=== PATIENT | female | born 1945 | race Caucasian/White ===

== ENCOUNTER 2018-07-09 05:20 | Day surgery (SDC) | payer OTHER ==
[~2018-07-09] VITALS: Ht 165.1 cm; Wt 75.7 kg
--- NOTE | ~2018-07-09 | O ---
[facility] [place] [address] OPERATIVE REPORT Name: PRECIOUS ALFRED Room #: DEP [facility]..#: [id number] Admission: 07/09/18 Attend Phys: Gaston Luna MD Discharge: 07/09/18 Date of : 47 Report #: [id number] THIS REPORT FOR: //name// CC: Jaylon Luna DATE OF SERVICE: 07/09/2018 SURGEON: Gaston Luna M.D. LOCAL ANNOUNCER: None. PREOPERATIVE DIAGNOSIS: Bilateral lower lid ectropion. POSTOPERATIVE DIAGNOSIS: Bilateral lower lid ectropion. OPERATION PERFORMED: Bilateral lower lid ectropion repair. ANESTHESIA: Local with IV sedation. COMPLICATIONS: None. INDICATIONS FOR PROCEDURE: This patient has bilateral acquired lower lid ectropion with chronic tearing and discharge. The current procedures are undertaken in order to improve the patient's visual function, lacrimal outflow, and level of comfort. Informed consent was obtained to include but not limit to the risk of loss of vision, bleeding, infection, scarring, failure to improve the problem and need for further surgery. DESCRIPTION OF OPERATION: The patient was taken to the operating room where 2% Xylocaine with epinephrine mixed with equal parts of 0.75% Marcaine with Wydase was administered transcutaneously and transconjunctivally to each lower lid and lateral canthal area. The patient was then prepped and draped in the usual sterile fashion. A Neymar clamp was then used to clamp the left lateral canthus following which a sharp canthotomy and cantholysis were performed. The tarsal strip was prepared laterally, removing the lash bearing portion of the redundant lid margin and the redundant tarsal plate. Hemostasis was achieved with a monopolar cautery, as it was throughout the case. The tarsal strip was then secured to the internal portion of the lateral orbital tubercle with two interrupted 5-0 Prolene sutures. The lateral canthal angle was sharply reformed as the subcutaneous structures and the skin were closed with multiple interrupted 6-0 plain gut sutures. Attention was then turned to the right side where the same procedure was [facility] [address] [address] OPERATIVE REPORT Name: PRECIOUS ALFRED Room #: DEP [facility]..#: [id number] Admission: 07/09/18 Attend Phys: Gaston Luna MD Discharge: 07/09/18 Date of : 47 Report #: [id number] performed. The wounds were cleaned and dressed with ophthalmic antibiotic ointment. The patient was then transported to the recovery area, having tolerated the procedure well with no anesthetic or operative complications being noted. <ELECTRONICALLY SIGNED> By: Gaston Luna MD 07/20/18 0626 [id number] Gaston Luna MD /nt
[~2018-07-09 05:20] MED LIST: LIPITOR10 MG PO; SYNTHROID112 MC1 PO; TUMS PO; VITAMIN D32000 UNIT PO
[2018-07-09 09:25] VITALS: BP 191/59
== END 2018-07-09 09:00 | disposition home or self-care (01) ==
LOC: OR 05:20 → TBA 05:20 → OR 09:00
DX: H02.102 Unspecified ectropion of right lower eyelid (principal); H02.105 Unspecified ectropion of left lower eyelid; K44.9 Diaphragmatic hernia without obstruction or gangrene; E78.5 Hyperlipidemia, unspecified; E03.9 Hypothyroidism, unspecified; Z88.8 Allergy status to other drugs, medicaments and biological substances; Z79.899 Other long term (current) drug therapy; Z85.3 Personal history of malignant neoplasm of breast; Z90.89 Acquired absence of other organs; Z98.890 Other specified postprocedural states
CPT/HCPCS: 50010; 50101; 50386; 50398; 51636; 56527; 56531; 62110; 62850; 70005

== ENCOUNTER 2019-03-18 05:31 | Day surgery (SDC) | payer OTHER ==
[~2019-03-18] VITALS: Ht 167.6 cm; Wt 77.6 kg
--- NOTE | ~2019-03-18 | O ---
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 PROCEDURE: Left direct brow plasty. SURGEON: Gaston Luna M.D. ANESTHESIA: General. COMPLICATIONS: None. INDICATIONS FOR SURGERY: This pleasant 73-year-old woman has a dense paralytic left brow ptosis with virtually complete obscuration of her vision on that side. Automated parametric testing showed dense superior visual field loss far in excess of normal visual function. Retesting with elevation of her brow into a normal anatomic location shows improvement of more than 30% and in excess of 12 degrees. She presents today for a left direct brow plasty in order to improve her visual function. Informed consent was obtained to include but not limited to the potential risk for bleeding, infection, under correction, over correction, numbness and anticipated loss of function over time because of the lack of muscle innervation. DESCRIPTION OF PROCEDURE: The patient was taken to the operating room where general anesthesia was administered. The left brow was then anesthetized with Xylocaine with epinephrine mixed with Marcaine and Wydase. The patient was subsequently prepped and draped in the usual sterile fashion. A fine tip skin marking pen was then utilized to outline an incision in the superior portion of the mature brow cilia. The estimated redundant tissue that could be excised still allowing the eye to naturally close was then outlined. The incisions were then made with a 15C blade. The skin and subcutaneous tissue were drawn down on to the frontalis muscle that was excised with a Maverick needle across the width of the incision. Hemostasis was achieved with diligent pinpoint monopolar cautery. The inferior portion of the wound was then elevated and resuspended [facility] [address] [place] [address] OPERATIVE REPORT Name: PRECIOUS ALFRED Room #: 150-1 [facility] M.R.#: [id number] Admission: 03/18/19 ������������������ Attend Phys: Gaston Luna MD Discharge: ������������������ Date of : 47 Report #: [id number] from the periosteum in the superior portion of the wound with multiple interrupted subcutaneous 5-0 Vicryl sutures. The skin was then closed with a running 5-0 Prolene suture. The wound was then cleaned and dressed with antibiotic ointment, followed by Telfa pad. The patient was subsequently transported to the recovery area having tolerated the procedure well with no anesthetic or operative complications being noted. ��������������������������������������������� ���������������������������������������� By: ��������������������������������������������� 0921 0940 Gaston Luna MD /nt
[~2019-03-18 05:31] MED LIST changes: +ASPIR-LOW81 MG PO; +LOTREL 5-10 MG1 EACH PO
[2019-03-18 08:10] VITALS: BP 140/87
== END 2019-03-18 11:16 | disposition home or self-care (01) ==
LOC: OR 05:31 → TBA 05:31 → OR 11:16
DX: H57.812 Brow ptosis, left (principal); H54.62 Unqualified visual loss, left eye, normal vision right eye; E78.5 Hyperlipidemia, unspecified; E03.9 Hypothyroidism, unspecified; Z86.73 Personal history of transient ischemic attack (TIA), and cerebral infarction without residual deficits; Z85.3 Personal history of malignant neoplasm of breast; Z98.890 Other specified postprocedural states; Z79.899 Other long term (current) drug therapy; Z91.041 Radiographic dye allergy status; Z79.82 Long term (current) use of aspirin
CPT/HCPCS: 50010; 50101; 50386; 50398; 51636; 56527; 56528; 62110; 62850; 64037; 70005